=== PATIENT | female | born 1955 | race Caucasian/White ===

== ENCOUNTER 2020-09-25 23:21 | Emergency (ER) | payer MEDICARE, MEDICAID ==
[2020-09-25 23:48] VITALS: BP 164/76; PULSE 63
--- NOTE | 2020-09-26 00:10 | EDM.PDOC ---
ED HPI GENERAL MEDICAL PROBLEM - General Chief Complaint: Cardiovascular Problem Stated Complaint: [facility] Time Seen by Provider: 09/25/20 23:34 Source of Information: Reports: Patient History Limitations: Reports: No Limitations - History of Present Illness INITIAL COMMENTS - FREE TEXT/NARRATIVE: Ms. Escamilla is a very pleasant 64-year-old woman who is now brought to the ED by EMS from [facility] with a report of her falling asleep for the past 4 days, and increased oxygen requirements. The patient ordinarily takes 2 to 3 L of oxygen per nasal cannula chronically, for presumed COPD. The patient tells me that she has had increased episodes of falling asleep over the past 4 days, along with "dropsy" by which she means 2 to 3-second episodes of whole body shakiness, that she states recurs 3-6 times a day. She also reports dyspnea on exertion for the past 4 days, independent of the shakiness. The patient does not know anything about her decreased oxygen saturation, but EMS placed her on a nonrebreather mask at 10 L, resulting in an SpO2 of 100%. She states that she has not taken any [id number] or home remedies to treat any of her presen ting symptoms. The patient reports that she has had occasional brief headaches over the past 2 weeks. She denies having a recent fever, chest pain, palpitations, cough, wheeze, abdominal pain, nausea, vomiting, constipation, diarrhea, or urinary symptoms. Here in the ED, the patient's initial BP is found to be somewhat elevated at 164/76, with slight tachypnea of 22 rpm. She is otherwise hemodynamically stable, afebrile, saturating 92% on her usual 3 L of oxygen per nasal cannula. She does not appear to be in any distress. Prior to 4 days ago, the patient denies having a recent fever, chills, sore throat, ear pain, nasal or sinus congestion, cough, dyspnea, chest pain, palpitations, nausea, vomiting, constipation, diarrhea, abdominal pain, urinary symptoms, recent weight gain or weight loss, recent bloody bowel movements or black bowel movements, recent joint aches, headaches, or rashes. The patient's PCP is Dr. Anthony Santos. She states that she has already received an influenza vaccine this season. 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 - Related Data Allergies Allergy/AdvReac Type Severity Reaction Status Date / Time No Known Allergies Allergy Verified 09/25/20 23:34 Home Meds: Home Meds Naproxen Sodium [Aleve] 440 mg PO DAILY 05/23/16 [History] Levothyroxine 175 mcg PO ACBRK #30 tab 05/26/16 [Rx] Metoprolol Succinate 12.5 mg PO QAM #30 tab.er.24h 05/26/16 [Rx] Potassium Chloride 10 meq PO BID #60 capsule.er 05/26/16 [Rx] Aspirin [Halfprin] 81 mg PO DAILY 07/06/17 [History] DULoxetine HCl [Duloxetine HCl] 30 mg PO BEDTIME 07/06/17 [History] Multivitamin [Daily Marlon] 1 tab PO DAILY 07/06/17 [History] Furosemide [Lasix] 40 mg PO DAILY 09/25/20 [History] Naproxen Sodium 440 mg PO Q8H PRN 09/25/20 [History] Past Medical History Cardiovascular History: Reports: Heart Failure Respiratory History: Reports: COPD (suspected, not tested, on 2-3L O2 per NC continuously) Gastrointestinal History: Reports: [employer] History: Reports: Spontaneous (x 1) Endocrine/Metabolic History: Reports: Hypothyroidism, Obesity/BMI 30+ Dermatologic History: Reports: Other (See Below) (Rosacea) - Infectious Disease History Infectious Disease History: Reports: Chicken Pox - Past Surgical History HEENT Surgical History: Reports: Adenoidectomy, Oral Surgery (dental extractions), Tonsillectomy GI Surgical History: Reports: Colonoscopy, EGD (x 3 or 4) Female Surgical History: Reports: Cervical Conization, D&C (x 1) Social & Family History - Tobacco Use Tobacco Use Status *Q: Never Tobacco User - Caffeine Use Caffeine Use: Reports: Soda, Tea - Alcohol Use Alcohol Use History: No - Recreational Drug Use Recreational Drug Use: No - Living Situation & Occupation Living situation: Reports: , Assisted Living ([facility] Occupation: Retired ED ROS GENERAL - Review of Systems Review Of Systems: Comprehensive ROS is negative, except as noted in HPI. ED EXAM, GENERAL - Physical Exam Exam: See Below Exam Limited By: No Limitations General Appearance: Alert, WD/WN, No Apparent Distress Eye Exam: Bilateral Eye: EOMI, Normal Inspection Ears: Normal External Exam, Hearing Loss Nose: Normal Inspection Throat/Mouth: Normal Inspection, Normal Lips, Normal Voice, No Airway Compromise Head: Atraumatic, Normocephalic Neck: Normal Inspection, Full Range of Motion Respiratory/Chest: No Respiratory Distress, Lungs Clear, Normal Breath Sounds, No Accessory Muscle Use. No: Decreased Breath Sounds, Crackles, Rhonchi, Wheezing, Stridor, Prolonged Expiration Cardiovascular: Normal Peripheral Pulses, Regular Rate, Rhythm, No Gallop, No JVD, No Murmur, No Rub Peripheral Pulses: 3+: Radial (L), Radial (R) GI/Abdominal: Normal Bowel Sounds, Soft, Non-Tender, No Organomegaly, No Distention, No Abnormal Bruit, No Mass Back Exam: Normal Inspection, Full Range of Motion, NT Extremities: Normal Range of Motion, Normal Capillary Refill Neurological: Alert, Oriented, Normal Cognition, No Motor/Sensory Deficits Psychiatric: Normal Affect Skin Exam: Warm, Dry, Intact, Normal Color, No Rash #1 Interpretation EKG Date: 09/26/20 Time: 00:13 Rhythm: NSR Rate (Beats/Min): 61 Wanda: Normal P-Wave: Present (1st degree AVB) QRS: Normal ST-T: Normal QT: Normal Comparison: No Change (05/23/2016) Course - Vital Signs Last Recorded V/S: Last Vital Signs Temp 36.1 C 09/25/20 23:47 Pulse 63 09/25/20 23:47 Resp 22 H 09/25/20 23:47 BP 164/76 H 09/25/20 23:47 Pulse Ox 92 L 09/25/20 23:47 - Orders/Labs/Meds Orders: Active Orders 24 hr Category Date Time Status EKG Documentation Completion [RC] STAT Care 09/26/20 00:02 Active Chest 2V [CR] Stat Exams 09/26/20 00:01 Taken CULTURE URINE [RM] Stat Lab 09/26/20 01:30 Received Labs: Laboratory Tests 09/26/20 09/26/20 09/26/20 Range/Units 00:15 00:20 00:20 WBC 8.38 (3.98-10.04) K/mm3 RBC 3.80 L (3.98-5.22) M/mm3 Hgb 11.6 (11.2-15.7) gm/dl Hct 39.6 (34.1-44.9) % MCV 104.2 H D (79.4-94.8) fl MCH 30.5 (25.6-32.2) pg MCHC 29.3 L (32.2-35.5) g/dl RDW Std Deviation 51.6 H (36.4-46.3) fL Plt Count 162 L (182-369) K/mm3 MPV 10.1 (9.4-12.3) fl Neutrophils % (Manual) 74 H (40-60) % Band Neutrophils % 9 (0-10) % Lymphocytes % (Manual) 6 L (20-40) % Atypical Lymphs % 0 % Monocytes % (Manual) 9 (2-10) % Eosinophils % (Manual) 2 (0.7-5.8) % Basophils % (Manual) 0 L (0.1-1.2) Toxic Granulation 1+ slight Platelet Estimate Decreased Plt Morphology Comment Normal Hypochromasia 2+ moderate Anisocytosis 2+ moder Macrocytosis 2+ moderate RBC Morph Comment Not Reportable D-Dimer, Quantitative (0.19-0.50) mg/L Puncture Site ABG pH (7.35-7.45) ABG pCO2 (35.0-45.0) mmHg ABG pO2 (80.0-100.0) mmHg ABG HCO3 (22.0-26.0) meq/L ABG O2 Saturation (96.0-97.0) % ABG Base Excess (-2-2.0) Reinaldo Test A-a Gradient mmHg O2 Delivery Device Oxygen Flow Rate FiO2 (21.00-100.00) % Sodium 145 (136-145) mEq/L Potassium 4.4 (3.5-5.1) mEq/L Chloride 100 (98-107) mEq/L Carbon Dioxide 44 H* D (21-32) mEq/L Anion Gap 5.4 (5-15) BUN 17 (7-18) mg/dL Creatinine 1.0 (0.55-1.02) mg/dL Est Cr Clr Drug Dosing 49.72 mL/min Estimated GFR (MDRD) 56 (>60) mL/min BUN/Creatinine Ratio 17.0 (14-18) Glucose 113 (80-115) mg/dL Calcium 9.6 (8.5-10.1) mg/dL Magnesium 2.2 (1.8-2.4) mg/dl Total Bilirubin 0.3 (0.2-1.0) mg/dL AST 20 (15-37) U/L ALT 23 (14-59) U/L Alkaline Phosphatase 125 H (46-116) U/L Troponin I < 0.017 (0.00-0.056) ng/mL C-Reactive Protein 3.6 H* (<1.0) mg/dL NT-Pro-B Natriuret Pep (0-125) pg/mL Total Protein 7.7 (6.4-8.2) g/dl Albumin 3.3 L (3.4-5.0) g/dl Globulin 4.4 gm/dL Albumin/Globulin Ratio 0.8 L (1-2) TSH 3rd Generation 4.379 H (0.358-3.74) uIU/mL Urine Color (Yellow) Urine Appearance (Clear) Urine pH (5.0-8.0) Ur Specific [place] (1.005-1.030) Urine Protein (Negative) Urine Glucose (UA) (Negative) Urine Ketones (Negative) Urine Occult Blood (Negative) Urine Nitrite (Negative) Urine Bilirubin (Negative) Urine Urobilinogen (0.2-1.0) Ur Leukocyte Esterase (Negative) Urine RBC (0-5) /hpf Urine WBC (0-5) /hpf Ur Squamous Epith Cells (0-5) /hpf Amorphous Sediment (NOT SEEN) /hpf Urine Bacteria (FEW) /hpf Urine Mucus (FEW) /hpf Influenza Type A RNA Negative (NEGATIVE) Influenza Type B RNA Negative (NEGATIVE) SARS-CoV-2 RNA (HARINI) Negative (NEGATIVE) 09/26/20 09/26/20 09/26/20 Range/Units 00:20 00:20 01:30 WBC (3.98-10.04) K/mm3 RBC (3.98-5.22) M/mm3 Hgb (11.2-15.7) gm/dl Hct (34.1-44.9) % MCV (79.4-94.8) fl MCH (25.6-32.2) pg MCHC (32.2-35.5) g/dl RDW Std Deviation (36.4-46.3) fL Plt Count (182-369) K/mm3 MPV (9.4-12.3) fl Neutrophils % (Manual) (40-60) % Band Neutrophils % (0-10) % Lymphocytes % (Manual) (20-40) % Atypical Lymphs % % Monocytes % (Manual) (2-10) % Eosinophils % (Manual) (0.7-5.8) % Basophils % (Manual) (0.1-1.2) Toxic Granulation Platelet Estimate Plt Morphology Comment Hypochromasia Anisocytosis Macrocytosis RBC Morph Comment D-Dimer, Quantitative 1.18 H (0.19-0.50) mg/L Puncture Site ABG pH (7.35-7.45) ABG pCO2 (35.0-45.0) mmHg ABG pO2 (80.0-100.0) mmHg ABG HCO3 (22.0-26.0) meq/L ABG O2 Saturation (96.0-97.0) % ABG Base Excess (-2-2.0) Reinaldo Test A-a Gradient mmHg O2 Delivery Device Oxygen Flow Rate FiO2 (21.00-100.00) % Sodium (136-145) mEq/L Potassium (3.5-5.1) mEq/L Chloride (98-107) mEq/L Carbon Dioxide (21-32) mEq/L Anion Gap (5-15) BUN (7-18) mg/dL Creatinine (0.55-1.02) mg/dL Est Cr Clr Drug Dosing mL/min Estimated GFR (MDRD) (>60) mL/min BUN/Creatinine Ratio (14-18) Glucose (80-115) mg/dL Calcium (8.5-10.1) mg/dL Magnesium (1.8-2.4) mg/dl Total Bilirubin (0.2-1.0) mg/dL AST (15-37) U/L ALT (14-59) U/L Alkaline Phosphatase (46-116) U/L Troponin I (0.00-0.056) ng/mL C-Reactive Protein (<1.0) mg/dL NT-Pro-B Natriuret Pep 360 H (0-125) pg/mL Total Protein (6.4-8.2) g/dl Albumin (3.4-5.0) g/dl Globulin gm/dL Albumin/Globulin Ratio (1-2) TSH 3rd Generation (0.358-3.74) uIU/mL Urine Color Yellow (Yellow) Urine Appearance Slt cloudy H (Clear) Urine pH 7.0 (5.0-8.0) Ur Specific [place] 1.020 (1.005-1.030) Urine Protein Negative (Negative) Urine Glucose (UA) Negative (Negative) Urine Ketones Negative (Negative) Urine Occult Blood Trace-lysed H (Negative) Urine Nitrite Negative (Negative) Urine Bilirubin Negative (Negative) Urine Urobilinogen 1.0 (0.2-1.0) Ur Leukocyte Esterase 1+ H (Negative) Urine RBC 0-5 (0-5) /hpf Urine WBC 5-10 H (0-5) /hpf Ur Squamous Epith Cells 0-5 (0-5) /hpf Amorphous Sediment Few H (NOT SEEN) /hpf Urine Bacteria Many H (FEW) /hpf Urine Mucus Few (FEW) /hpf Influenza Type A RNA (NEGATIVE) Influenza Type B RNA (NEGATIVE) SARS-CoV-2 RNA (HARINI) (NEGATIVE) 09/26/20 Range/Units 01:35 WBC (3.98-10.04) K/mm3 RBC (3.98-5.22) M/mm3 Hgb (11.2-15.7) gm/dl Hct (34.1-44.9) % MCV (79.4-94.8) fl MCH (25.6-32.2) pg MCHC (32.2-35.5) g/dl RDW Std Deviation (36.4-46.3) fL Plt Count (182-369) K/mm3 MPV (9.4-12.3) fl Neutrophils % (Manual) (40-60) % Band Neutrophils % (0-10) % Lymphocytes % (Manual) (20-40) % Atypical Lymphs % % Monocytes % (Manual) (2-10) % Eosinophils % (Manual) (0.7-5.8) % Basophils % (Manual) (0.1-1.2) Toxic Granulation Platelet Estimate Plt Morphology Comment Hypochromasia Anisocytosis Macrocytosis RBC Morph Comment D-Dimer, Quantitative (0.19-0.50) mg/L Puncture Site Rt radial ABG pH 7.32 L (7.35-7.45) ABG pCO2 84.8 H* (35.0-45.0) mmHg ABG pO2 64.0 L (80.0-100.0) mmHg ABG HCO3 42.7 H (22.0-26.0) meq/L ABG O2 Saturation 87.9 L (96.0-97.0) % ABG Base Excess 13.3 H (-2-2.0) Reinaldo Test Positive A-a Gradient 58 mmHg O2 Delivery Device Nasal cannula Oxygen Flow Rate 3.0 FiO2 32.00 (21.00-100.00) % Sodium (136-145) mEq/L Potassium (3.5-5.1) mEq/L Chloride (98-107) mEq/L Carbon Dioxide (21-32) mEq/L Anion Gap (5-15) BUN (7-18) mg/dL Creatinine (0.55-1.02) mg/dL Est Cr Clr Drug Dosing mL/min Estimated GFR (MDRD) (>60) mL/min BUN/Creatinine Ratio (14-18) Glucose (80-115) mg/dL Calcium (8.5-10.1) mg/dL Magnesium (1.8-2.4) mg/dl Total Bilirubin (0.2-1.0) mg/dL AST (15-37) U/L ALT (14-59) U/L Alkaline Phosphatase (46-116) U/L Troponin I (0.00-0.056) ng/mL C-Reactive Protein (<1.0) mg/dL NT-Pro-B Natriuret Pep (0-125) pg/mL Total Protein (6.4-8.2) g/dl Albumin (3.4-5.0) g/dl Globulin gm/dL Albumin/Globulin Ratio (1-2) TSH 3rd Generation (0.358-3.74) uIU/mL Urine Color (Yellow) Urine Appearance (Clear) Urine pH (5.0-8.0) Ur Specific [place] (1.005-1.030) Urine Protein (Negative) Urine Glucose (UA) (Negative) Urine Ketones (Negative) Urine Occult Blood (Negative) Urine Nitrite (Negative) Urine Bilirubin (Negative) Urine Urobilinogen (0.2-1.0) Ur Leukocyte Esterase (Negative) Urine RBC (0-5) /hpf Urine WBC (0-5) /hpf Ur Squamous Epith Cells (0-5) /hpf Amorphous Sediment (NOT SEEN) /hpf Urine Bacteria (FEW) /hpf Urine Mucus (FEW) /hpf Influenza Type A RNA (NEGATIVE) Influenza Type B RNA (NEGATIVE) SARS-CoV-2 RNA (HARINI) (NEGATIVE) - Re-Assessments/Exams Free Text/Narrative Re-Assessment/Exam: 09/26/20 00:06 As above, the patient states that she has had 4 days of falling asleep, intermittent shakiness, dyspnea on exertion, and decreased oxygen saturation. None of the symptoms are present at this time; her oxygen saturation is 92% on her usual 3 L of oxygen per nasal cannula. She is fully alert, and is not suffering any shakiness or dyspnea. Her physical exam is grossly unremarkable. I have ordered a work-up that includes numerous blood tests, a urinalysis by quick catheter, a swab for the SARS-CoV-2 virus and influenza virus, a chest x- ray, a CT of the head without contrast, and an ECG. 09/26/20 00:38 Notified by Zoë DUENAS that the CT of the head had to be canceled, due to the patient's weight. 09/26/20 01:20 Two-view chest radiograph reviewed. There is mild cardiomegaly with mild pulmonary vascular congestion. No pleural effusions. No focal infiltrate. No pneumothorax. Formal read per the Radiologist pending. The patient's CBC is remarkable for mild thrombocytopenia of 162,000, with the remainder of her CBC being unremarkable. Her CMP is remarkable for a bicarbonate elevated at 44, with the remainder of her CMP being unremarkable. Her magnesium level is within normal limits at 2.2. Her CRP is mildly elevated at 3.6. Her TSH is elevated at 4.379. Her troponin is undetectably low. Her D-dimer is elevated at 1.82. Her pro-BNP is mildly elevated at 360. Her swab for the SARS-CoV-2 virus and influenza virus has returned negative for both. A urine sample has not yet been collected. Based on the above, I have ordered an ABG. 09/26/20 02:14 The ABG represents a chronic primary respiratory acidosis with secondary metabolic alkalosis. 09/26/20 02:43 The patient's urinalysis, obtained by quick catheter, is remarkable for trace occult blood with 0-5 RBCs, 1+ leukocyte esterase with 5-10 WBCs, nitrate negative with many bacteria, and 0-5 squamous epithelial cells. Based on above, I have ordered a urine culture, but I do not feel that the urinalysis is consistent enough with a UTI to warrant antibiotics at this time, particularly since the patient denies having any urinary symptoms. 09/26/20 03:57 If the patient is too large for a CT of the head, that she is too large for a CT angiogram of the chest. Case discussed with Pato at [facility] at 03:22. Case then discussed with the technical maintenance technician, who informed us that their CT scan can accept patients up to 500 pounds (the patient weighs 400 lbs). Case then discussed with Dr. No, Emergency Physician at [facility], at 03:52. He accepted the patient for transfer to their ED. The patient will be transported by ground ambulance. The patient's chest x-ray image has been pushed to [facility]. Departure - Departure Time of Disposition: 03:59 Disposition: DC/Tfer to Acute Hospital 02 Reason for Transfer *Q: Other Condition: Good Clinical Impression: Elevated d-dimer, Dyspnea on exertion Referrals: Anthony Santos MD [Primary Care Provider] - Forms: ED Department Discharge Sepsis Event Note (ED) - Evaluation Sepsis Screening Result: No Definite Risk - Focused Exam Vital Signs: Vital Signs Temp Pulse Resp BP Pulse Ox 09/25/20 23:47 36.1 C 63 22 H 164/76 H 92 L - My Orders Last 24 Hours: My Active Orders 09/26/20 00:01 Chest 2V [CR] Stat 09/26/20 00:02 EKG Documentation Completion [RC] STAT 09/26/20 01:30 CULTURE URINE [RM] Stat - Assessment/Plan Last 24 Hours: My Active Orders 09/26/20 00:01 Chest 2V [CR] Stat 09/26/20 00:02 EKG Documentation Completion [RC] STAT 09/26/20 01:30 CULTURE URINE [RM] Stat
[2020-09-26 00:58] LABS: CORONAVIRUS COVID-19 NAA NEGATIVE (NEGATIVE)
--- NOTE | 2020-09-26 10:22 | CR ---
Chest: 2 views of the chest were obtained. Comparison: Prior chest x-ray of 05/23/16. Patchy areas of increased density are seen within both lungs as well as mild areas of atelectasis on the left side. Heart size is slightly enlarged. Upper mediastinum is normal. Mild degenerative change is scattered within the spine. Impression: 1. Patchy areas of increased density on both sides of the chest with atelectasis on the left side. Differential includes diffuse bronchitis with atelectasis versus pulmonary vascular congestion with atelectasis. Diagnostic code #3
== END 2020-09-26 05:15 ==
LOC: JD.ED 23:21
DX: R06.00 Dyspnea, unspecified (principal); R79.1 Abnormal coagulation profile; J44.9 Chronic obstructive pulmonary disease, unspecified; E03.9 Hypothyroidism, unspecified; I50.9 Heart failure, unspecified; E66.9 Obesity, unspecified; Z68.44 Body mass index [BMI] 60.0-69.9, adult; Z79.82 Long term (current) use of aspirin; Z79.899 Other long term (current) drug therapy
CPT/HCPCS: 0240U; 36415; 36600; 71046; 80053; 81001; 82803; 83735; 83880; 84443; 84484; 85007; 85027; 85379; 86140; 87086; 87088; 87186; 93005; 99285; 93010